=== PATIENT | female | born 1940 | race African-American/Black ===

== ENCOUNTER 2016-11-21 00:06 | Emergency (ER) | payer MEDICARE, MEDICAID ==
[~2016-11-21 00:06] MED LIST: ACET325 PO; Calcium Carbonate CHEW; LASI20TA PO; PROT40TA PO; SUCR1S PO; Z.0.WALKERFRONT
[2016-11-21] MEDS ORDERED: EPINEPHrine HCL (1:10,000) 1 MG/10 ML SYRINGE ONE (00:39)
--- NOTE | 2016-11-21 01:24 | PD ---
HPI Chief Complaint: cardiopulmonary arrest Time Seen by Provider: 00:27 Travel History International Travel<30 days: No Contact w/Intl Traveler<30days: No History of Present Illness HPI The patient is a 75 year old female who presents to the [facility] emergency department with a history of being brought in by ambulance services in cardiopulmonary arrest with ACLS protocol in progress. The patient had compressions being provided. The patient a [address] Confirmation of tube placement was done prior to transfer to the emergency department bed. The patient had equal breath sounds being assisted by bag valve to ET tube. The patient according to ambulance services had respiratory distress on their arrival. The patient is currently a resident at a local shelter. The patient was checked on by the staff and noted to be in distress, however it is unknown exactly how long patient was in distress prior to them evaluating the patient. The patient on ambulance services arrival was noted to have an O2 saturation of 78%. While assessing the patient, the patient was noted to become apneic and pulseless. The patient on the monitor was noted to be in asystole. The patient was intubated by ambulance services. Chest compressions were started. ACLS protocol was initiated and the patient prior to arrival had received 3 doses of epinephrine. The patient also received 2 A of bicarbonate. The patient was in PEA throughout the entire course of their evaluation after the initial assessment with the patient in asystole. The onset of the patient's cardiopulmonary arrest was reportedly at 23:38. No other history is able to be obtained from the patient, therefore the patient's electronic medical record was reviewed for her other history. [facility] Past Medical History Narrative Medical The patient's past medical history is significant for COPD, pneumonia, GI bleed , history of rheumatoid arthritis. Diminished Hearing: No Menopausal: Yes Past Surgical History Narrative Surgical The patient's past surgical history is significant for removal of a fibroid tumor of her uterus Gynecologic Surgery: Yes (FIBROID TUMORS REMOVED) Pacemaker: No Social History Alcohol Use: No Tobacco Use: No Substance Use: No Allergies-Medications (Allergen,Severity, Reaction): Coded Allergies: No Known Allergies (Verified , 11/21/16) Reported Meds & Prescriptions Reported Meds & Active Scripts Active Walker Front Wheel (Walkerfront) Device 1 Unit Carafate 1 Gm/10 Ml Udc (Sucralfate) 1 Gm/10 Ml Susp 1 Gm PO TIDACHS 30 Days Protonix (Pantoprazole Sodium) 40 Mg Tabdr 40 Mg PO Q12 30 Days [Calcium Carbonate] 500 MG Chew 1,000 Mg CHEW TID PRN 30 Days Tylenol (Acetaminophen) 325 Mg Tab 650 Mg PO Q4H PRN 30 Days Reported Lasix (Furosemide) 20 Mg Tab 0 Mg PO EVERY OTHER DAY UNKNOWN DOSE Review of Systems ROS Limitations: Intubated Physical Exam Narrative General: The patient is a well-developed, morbidly obese female in cardiopulmonary arrest with chest compressions being provided, being bagged by bag to endotracheal tube. Head and Neck exam: Head is normocephalic atraumatic. Eyes: extraocular motion testing is unable to be accomplished as the patient arrives unresponsive, pupils are fixed and dilated on arrival. Nose: Midline septum with pink mucous membranes Mouth: Dentition unremarkable. Moist mucus membranes. Posterior oropharynx is not fully visualized as the patient is intubated with an endotracheal tube. Neck: No palpable lymphadenopathy. No nuchal rigidity. No thyromegaly. Cardiovascular: No cardiac activity is auscultated initially. Lungs: Equal breath sounds bilaterally being assisted with bag to endotracheal tube. No wheezes, rhonchi, or rales. She has no spontaneous respiratory effort noted. Abdomen: Soft, without tenderness to palpation in all 4 quadrants of the abdomen. No guarding, rebound, or rigidity. Extremities: No clubbing, cyanosis, or edema. Neurologic Exam: The patient arrives with a GCS of 3. Eyes 1. Motor 1. Verbal- 1. Skin Exam: No rash noted. Intact skin that is warm and dry. Data Data Last Documented VS Vital Signs Date Time Temp Pulse Resp B/P Pulse Ox O2 Delivery O2 Flow Rate FiO2 11/21/16 00:00 15.00 100 Orders Epinephrine (1:10,000) Inj (Epinephrine (11/21/16 00:39) MDM Medical Decision Making Medical Screen Exam Complete: Yes Emergency Medical Condition: Yes Medical Record Reviewed: Yes Differential Diagnosis Respiratory failure leading to cardiac arrest, versus cardiac arrhythmia, versus acute coronary syndrome Narrative Course During the course of the patients emergency department visit, the patients history, examination were discussed with the emergency department staff, and ambulance services crew at the bedside. The patient had intraosseous access placed prior to arrival by ambulance services. The patient was difficult to obtain peripheral access and in her extremities, therefore I placed an 18-gauge Angiocath in the left external jugular vein. ACLS protocol was continued with continued doses of epinephrine IV. The patient continued to be pulseless and in PEA on repeat rhythm checks, therefore compressions were continued. On reassessment at 12:16 AM, the patient was noted to have her return of pulse with sinus tach noted. The patient had a blood pressure of 140/86 on assessment. The patient was started on normal saline wide open. I left the room to put in laboratory studies and a chest x-ray on the patient while OG was placed and Sharpe catheter was placed and the patient. I was called back into the room after the patient again had cardiac arrest. The patient was noted on the monitor to be in V. tach without a pulse. The patient was defibrillated. Epinephrine IV was administered. The patient had ACLS protocol again started. Compressions were provided. The patient went into ventricular fibrillation alternating with V. tach with multiple shocks delivered. The patient was also given lidocaine 100 mg IV. The patient appeared to have an episode of torsades and was given magnesium IV. The patient had no return of pulse. The patient continued to have no spontaneous respiratory activity. The patient continued to have fixed and dilated pupils. The patient's time of was called at 12: 42 AM. The patient's family were notified. Critical Care Narrative Aggregate critical care time was 37 minutes. Time to perform other separately billable procedures was not included in the critical care time. My time did not include minutes spent treating any other patients simultaneously or on activities that did not directly contribute to the patient's treatment. The services I provided to this patient were to treat and/or prevent clinically significant deterioration that could result in: Cardiac arrhythmia, anoxic brain injury, I provided critical care services requiring my management, as noted below: Chart data review, documentation time, medication orders and management, vital sign assessments/reviewing monitor data, ordering and reviewing lab tests, ordering and interpreting/reviewing x-rays and diagnostic studies, care of the patient and discussion of the patient with the admitting physicians. Diagnosis Primary Impression: Cardiopulmonary arrest Admitting Information Admitting Physician Requests: Farhana Puvris MD Nov 21, 2016 01:24
[2016-11-21] MEDS ORDERED: SODIUM BICARBONATE 8.4% INJ 50 MEQ/50 ML SYR IV ONE (05:00)
[2016-11-21] MEDS ORDERED: LIDOCAINE HCL 2% 100 MG/5 ML SYRINGE IV PUSH ONE (05:00)
[2016-11-21] MEDS ORDERED: CALCIUM CHLORIDE 10% SOLN 1 GRAM/10 ML SYR IV ONE (05:00)
[2016-11-21] MEDS ORDERED: EPINEPHrine HCL (1:10,000) 1 MG/10 ML SYRINGE IV ONE (05:00)
== END 2016-11-21 03:45 | disposition expired ==
LOC: NEPI 00:06
DX: I46.9 Cardiac arrest, cause unspecified (principal)
CPT/HCPCS: 51702; 92950; 99291; J0171